=== PATIENT | male | born 1955 | race Caucasian/White ===

== ENCOUNTER → 2024-12-28 06:17 | Day surgery (SDC) | payer BC, SELFPAY ==
[2024-12-28 08:04] LABS: Glucose - Point of Care 148 mg/dl (70-99)
== END ==
LOC: GI 06:17
PROVIDERS: ATTENDING PHYSICIAN Internal Medicine Gastroenterology
DX: Z12.11 Encounter for screening for malignant neoplasm of colon (principal); K64.8 Other hemorrhoids; K57.30 Diverticulosis of large intestine without perforation or abscess without bleeding; K63.5 Polyp of colon; K62.1 Rectal polyp; Z86.0100 Personal history of colon polyps, unspecified; Z98.0 Intestinal bypass and anastomosis status
CPT/HCPCS: 45380; 88305; 82962